=== PATIENT | male | born 1955 | race African-American/Black ===

== ENCOUNTER → 2023-06-07 11:11 | Outpatient (CLI) | payer OTHER, SELFPAY ==
--- NOTE | ~2023-06-07 | CT_ITS ---
EXAMINATION: CT chest high resolution wo ak DATE: 06/07/2023 11:28 INDICATION: Personal history of other diseases of the respiratory tract, asbestos exposure TECHNIQUE: Computed tomography (CT) of the chest was performed without intravenous contrast. The dose -length product (DLP) was 262.02 mGy-cm. Automated exposure control and iterative reconstruction tech [employer] were employed. COMPARISON: None FINDINGS: There is discoid atelectasis in the left lower lobe. The lungs are free of focal airspace o pacities. No pleural effusion or pneumothorax. No discrete findings are identified to reflect prior a sbestos exposure. Calcified left hilar and subcarinal lymph nodes are consistent with old granulomato us disease. No pathologically enlarged thoracic lymph nodes are identified. The heart size is normal. Calcified coronary artery atherosclerosis is noted. There is moderate thoracic spondylosis. Punctat e calcifications in an otherwise normal spleen likely represent healed granulomatous disease. IMPRESSION: 1. No discrete findings of prior asbestos exposure. 2. Coronary artery disease. Reviewed, dictated and finalized at location F.
== END ==
PROVIDERS: PCP Family Medicine; Visit Provider Family Medicine
DX: Z77.090 Contact with and (suspected) exposure to asbestos (principal); Z87.09 Personal history of other diseases of the respiratory system; I25.10 Atherosclerotic heart disease of native coronary artery without angina pectoris
CPT/HCPCS: 71250

== ENCOUNTER → 2023-06-09 11:41 | Outpatient (CLI) | payer MEDICARE, SELFPAY ==
--- NOTE | ~2023-06-09 | US_ITS ---
US renal BI 06/09/2023 12:00 Procedure: Realtime transabdominal ultrasound of the kidneys and bladder. Indication: Chronic kidney disease Comparison: No prior studies for comparison. Findings: Renal echotexture is normal bilaterally without hydronephrosis, contour deforming mass or r enal calculus. There is a 4.5 cm right renal cyst. The right kidney measures 9.6 cm and left kidney m easures 9.4 cm. Bladder within normal limits. Impression: 1: Right renal cyst measuring 4.5 cm. Reviewed, dictated and finalized at location B. Impression: 1: Right renal cyst measuring 4.5 cm.
== END ==
PROVIDERS: PCP Family Medicine; Visit Provider Internal Medicine Nephrology
DX: I12.9 Hypertensive chronic kidney disease with stage 1 through stage 4 chronic kidney disease, or unspecified chronic kidney disease (principal); N18.32 Chronic kidney disease, stage 3b; N28.1 Cyst of kidney, acquired
CPT/HCPCS: 76775

== ENCOUNTER 2023-09-12 14:01 | Outpatient (CLI) | payer MEDICARE, SELFPAY ==
--- NOTE | 2023-09-12 14:06 | ECHO_ITS ---
Patient Info Name: Farhan Harrison Age: 67 years : 1955 Gender: Male Ht: 73 in Wt: 210 lbs BSA: 2.23 m2 HR: 78 bpm BP: 170 / 115 mmHg Heart Rhythm: Atrial Fibrillation Technical Quality: Good Exam Date: 09/12/2023 2:14 PM Exam Location: Echo Lab Patient Status: Outpatient Admit Date: 09/12/2023 Staff Ordering Physician: Joan Guzman MD Kitchen Help Handyman: Lavonne Agarwal RDCS Attending Provider: Joan Guzman MD Referring Physician: Thomas TURPIN; Exam Type: CA echo doppler color flow Study Info Indications - Afib Complete two-dimensional, color flow and Doppler transthoracic echocardiogram is performed. Summary 1. Complete two-dimensional, color flow and Doppler transthoracic echocardiogram is performed. 2. Left ventricular chamber dimension is normal. 3. Left ventricular systolic function is normal, estimated at 65-70%. 4. There is mild concentric increased left ventricular wall thickness. 5. The left ventricular diastolic function is normal. 6. E/e' 5 is not elevated. 7. Atrial fibrillation. 8. Left atrial chamber dimension is moderately enlarged. 9. Right atrial chamber dimension is mildly enlarged. 10. There is mild aortic valve sclerosis. 11. The mitral valve has mildly calcified annulus. 12. There is trace tricuspid valve regurgitation. 13. No pulmonary hypertension, estimated pulmonary arterial systolic pressure is 22 mmHg. 14. There is trivial pericardial effusion. Left Ventricle E/e' 5 is not elevated. Atrial fibrillation. Left ventricular chamber dimension is normal. Left ventricular systolic function is normal, estimated at 65-70%. There is mild concentric increased left ventricular wall thickness. The left ventricular diastolic function is normal. Right Ventricle Right ventricular systolic function is normal and with normal TAPSE 2.2 cm. Right ventricular chamber dimension is normal. Left Atria Left atrial chamber dimension is moderately enlarged. Right Atria Right atrial chamber dimension is mildly enlarged. Aortic Valve The aortic valve is trileaflet. There is mild aortic valve sclerosis. There is no aortic valve stenosis. There is no aortic valve regurgitation. Pulmonic Valve There is no pulmonic regurgitation. Mitral Valve The mitral valve has mildly calcified annulus. There is no mitral valve stenosis. There is no mitral valve regurgitation. Tricuspid Valve There is trace tricuspid valve regurgitation. No pulmonary hypertension, estimated pulmonary arterial systolic pressure is 22 mmHg. Pericardium/Pleural There is trivial pericardial effusion. Inferior Vena Cava Normal inferior vena cava with >50% collapse upon inspiration consistent with normal right atrial pressure, 5 mmHg. Aorta The aortic root size at the sinus of Valsalva is normal. Left Ventricular Outflow Tract Name Value Normal LVOT 2D LVOT Diameter 2.0 cm LVOT Doppler LVOT Peak Gradient 2 mmHg LVOT Mean Gradient 1 mmHg LVOT VTI 13 cm LVOT VTI/AV VTI Ratio 0.9 LVOT Stroke Volume 40 ml LVOT CO
== END 2023-09-12 14:02 | disposition home or self-care (01) ==
PROVIDERS: PCP Family Medicine; Visit Provider Family Medicine
DX: I48.91 Unspecified atrial fibrillation (principal); I10 Essential (primary) hypertension
CPT/HCPCS: 93306

== ENCOUNTER 2025-01-20 00:43 | Day surgery (SDC) | payer OTHER, MEDICARE, SELFPAY ==
[2025-01-17 10:58] VITALS: BMI 30.4
[2025-01-20] VITALS (7 sets, daily range): BP systolic 139–169; BP diastolic 85–101; PULSE 41–63; RESP 14–18; TEMP 36.5; O2SAT 96–100
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
--- NOTE | 2025-01-20 08:30 | ECG_ITS ---
Test Date: 2025-01-20 08:26:38 Measurements Intervals [place] Rate: 59 P: 0 IA: 0 QRS: -10 QRSD: 108 T: -15 QT: 398 QTc: 397 Interpretive Statements ATRIAL FIBRILLATION WITH SLOW VENTRICULAR RESPONSE ABNORMAL RHYTHM ECG No previous ECG available for comparison Electronically Signed On 01-21-2025 14:19:33 CDT by Michael Lauren M.D.
[2025-01-20 08:50] LABS: Anion Gap 8 mmol/L (4-12); Blood Urea Nitrogen 15 mg/dL (9-20); Calcium 8.4 mg/dL (8.4-10.2); Carbon Dioxide 25 mmol/L (22-30); Chloride 105 mmol/L (98-107); Estimated CRCL calculation 50 ml/min; Estimated Glomerular Filt Rate 42; Glucose 96 mg/dL (65-110); Magnesium 2.1 mg/dL (1.6-2.3); Potassium 3.6 mmol/L (3.4-5.0); Sodium 138 mmol/L (137-145)
[2025-01-20] MEDS: fentaNYL CITRATE INJ (*CRX) 100 MCG/2 ML VIAL (09:35)
[2025-01-20] MEDS: MIDAZOLAM HCL (*CRX) 2 MG/2 ML VIAL (09:35)
[2025-01-20] MEDS: PROPOFOL IV EMULSION 200 MG/20 ML VIAL 20 MG IV PUSH (09:36)
--- NOTE | 2025-01-20 09:39 | WPDMODSED ---
Moderate Sedation Note-Pt Data Patient Data Allergies Allergy/AdvReac Type Severity Reaction Status Date / Time No Known Allergies Allergy Verified 01/17/25 10:55 Home Medications ?Medication ?Instructions ?Recorded ?Confirmed ?Type rivaroxaban 20 mg tablet (Xarelto) See Rx Instructions .Route 09/13/24 01/20/25 Rx .COMPLEX #90 tabs amlodipine 10 mg tablet See Rx Instructions .Route 10/25/24 01/20/25 Rx .COMPLEX #100 tabs losartan 50 mg tablet 100 mg PO DAILY 11/07/24 01/20/25 History tamsulosin 0.4 mg capsule 0.4 mg PO QHS #90 caps 11/19/24 01/20/25 Rx metoprolol tartrate 25 mg tablet 25 mg PO BID #60 tabs 12/31/24 01/20/25 Rx furosemide 20 mg tablet 20 mg PO DAILY 01/17/25 01/20/25 History hydrochlorothiazide 25 mg tablet 25 mg PO DAILY 01/17/25 01/20/25 History Sedation/Anesthesia: No previous sedation/anesthesia problems (including family history). FORMERLY [facility] Past Medical History Medical History Benign hypertension with chronic kidney disease Tobacco abuse Hyperlipidemia Benign essential HTN Surgical History Surgical History Hx of colonoscopy with polypectomy Hx of knee surgery Family History Family History Father Hypertension Mother Cirrhosis Social History Social History Social History: Smoking status: Former smoker Second hand tobacco smoke exposure: No Additional smoking assessment comments: started smoking in 2019 after stopped working. Alcohol intake: former Substance use: never Substance use type: does not use Do You Feel Safe in your Home?: Yes Lack of Transportation: No Lack of Food: Never True Current Housing: I Have Housing Concerned About Future Housing: No Difficulty Paying Gas/Electric Bills: No Difficulty Paying for Meds: No Currently Unemployed: YES Education: Decline to Answer Difficulty w/ Childcare or Family Care: No Living arrangements: alone Occupation/Education: retired Gender identity (if verbalized by the patient): Male Sexual Orientation (if Verbalized by the Patient): Straight or Heterosexual Spiritual care concerns: No Agree to blood products: Yes Mod Sed Physical Exam Physical Exam Pre Procedural Exam: Normal: Heart Rate and Variation: Heart Rhythm Hours since solid foods: 12 Hours since liquid intake: 12 Mallampati Classification: class III Internal Medicine - PN: Obj Da Vital Signs Vital Signs: Vital Signs - 24 hr 01/20/25 08:26 01/20/25 09:35 Temperature 36.5 C Pulse Rate 63 58 L Respiratory Rate 16 16 Blood Pressure 140/97 H 169/101 H Pulse Oximetry 97 100 Oxygen Delivery Room Air Nasal Cannula Oxygen Flow Rate 2 Labs 01/20/25 08:34 Labs: Laboratory Results - last 24 hr 01/20/25 08:34 Sodium 138 Potassium 3.6 Chloride 105 Carbon Dioxide 25 Anion Gap 8 BUN 15 Creatinine 1.63 H Estim Creat Clear Calc 50 Estimated GFR 42 L Glucose 96 Calcium 8.4 Magnesium 2.1 ASA Classification/Sedation ASA Classification/Sedation ASA Class: III Emergent: No Risks: Risks, benefits and alternatives explained and patient/family accepted plan for sedation. Patient re-evaluated immediately prior to sedation.
--- NOTE | 2025-01-20 09:39 | WPDCARDVER ---
Cardioversion Cardioversion Date of procedure: 01/20/25 Procedure: Synchronized cardioversion Pre-op diagnosis: Paroxysmal atrial fibrillation Post-op diagnosis: Same Indications: Paroxysmal atrial fibrillation Description of procedure: After patient received adequate sedation, synchronized cardioversion with 200 joules was performed with successful confucianism of sinus rhythm. Sedation: Versed 2 mg Fentanyl 100 mcg Propofol 20 mg Conclusion: Successful synchronized cardioversion with confucianism of sinus rhythm.
--- NOTE | 2025-01-20 10:00 | ECG_ITS ---
Test Date: 2025-01-20 09:40:00 Measurements Intervals [place] Rate: 53 P: 13 DE: 191 QRS: 72 QRSD: 91 T: 63 QT: 423 QTc: 398 Interpretive Statements SINUS BRADYCARDIA WITH OCCASIONAL SUPRAVENTRICULAR PREMATURE COMPLEXES Compared to ECG 01/20/2025 08:26:38 Atrial fibrillation no longer present Electronically Signed On 01-21-2025 14:33:20 CDT by Michael Lauren M.D.
--- NOTE | 2025-01-20 12:40 | WPDHPUPDATE1 ---
History and Physical Update Update Date/Time: 01/20/25 09:30 History and Physical has been reviewed, including an updated exam of the patient. There are NO changes in the patient's condition. Risks, benefits, and alternatives have been discussed and questions answered. Patient agrees to proceed with procedure.
== END 2025-01-20 11:00 | disposition home or self-care (01) ==
PROVIDERS: PCP Family Medicine; Visit Provider Internal Medicine
PROC: 5A2204Z Restoration of Cardiac Rhythm, Single (ICD-10-PCS; principal; 2025-01-20 10:00)
DX: I48.0 Paroxysmal atrial fibrillation (principal); Z87.891 Personal history of nicotine dependence
CPT/HCPCS: 36415; 80048; 83735; 92960; J2250; J2704; J3010; J7040

== ENCOUNTER 2025-01-30 02:17 | Day surgery (SDC) | payer OTHER, MEDICARE, SELFPAY ==
[2025-01-22 09:09] VITALS: BMI 30.4
--- NOTE | 2025-01-22 09:20 | PC.NURSE ---
Spoke with patient on 01/22/25 in regards to instructions for his colonoscopy on 01/30/25. Patient verbalizes understanding that he is to take his last dose of blood thinner on 01/27/25 for procedure.
--- OUTSIDE RECORDS SUMMARY | 2025-01-30 02:27 | XMS_ITS | Clinical Summary ---
Author Organization [facility] Address [address] [place] [address] Phone Care Team Providers Care Automotive Instructor Name Role Phone Unavailable Primary Care Provider [...] (1 - 1-dose 75+ series) 12/05/2031 Insurance [employer] CHOICE
[2025-01-30 09:18] VITALS: BP 147/88; PULSE 41; RESP 18; TEMP 36.1; O2SAT 99
--- NOTE | 2025-01-30 09:22 | P.PNAN_ITS ---
Anes - Initial Pre Proc Eval Procedure: Operation Date: 01/30/25 10:00 Proposed Procedures p Screening Colonoscopy - Kyle Lehman MD Date/Time: 01/30/25 09:22 Surgeon: Kyle Lemhan MD Pre Op Diagnosis: Encounter for screening for malignant neoplasm of Patient Data Age: 69 Gender: M Height: 1.85 m Weight: 104.5 kg Allergies Allergy/AdvReac Type Severity Reaction Status Date / Time No Known Allergies Allergy Verified 01/30/25 09:17 Home Medications ?Medication ?Instructions ?Recorded ?Confirmed ?Type rivaroxaban 20 mg tablet (Xarelto) See Rx Instructions .Route 09/13/24 01/30/25 Rx .COMPLEX #90 tabs amlodipine 10 mg tablet See Rx Instructions .Route 10/25/24 01/22/25 Rx .COMPLEX #100 tabs losartan 50 mg tablet 100 mg PO DAILY 11/07/24 01/22/25 History tamsulosin 0.4 mg capsule 0.4 mg PO QHS #90 caps 11/19/24 01/22/25 Rx metoprolol tartrate 25 mg tablet 25 mg PO BID #60 tabs 12/31/24 01/30/25 Rx furosemide 20 mg tablet 20 mg PO DAILY 01/17/25 01/22/25 History hydrochlorothiazide 25 mg tablet 25 mg PO DAILY 01/17/25 01/22/25 History Patient hx anesthesia problems: none Family hx anesthesia problems: none Results Review: All pre-operative results and documents have been reviewed as part of the pre- operative evaluation. [facility]LY [facility] Past Medical History Medical History (Updated 01/29/25 @ 14:27 by Kirt Harrison DO) CHF (congestive heart failure) EF 65-70% Coronary artery calcification seen on CAT scan CKD (chronic kidney disease), stage III Atrial fibrillation, chronic Benign hypertension with chronic kidney disease Tobacco abuse Hyperlipidemia Benign essential HTN Surgical History Surgical History Hx of colonoscopy with polypectomy Hx of knee surgery Family History Family History Father Hypertension Mother Cirrhosis Social History Social History Social History: Smoking status: Former smoker Second hand tobacco smoke exposure: No Additional smoking assessment comments: started smoking in 2019 after stopped working. Alcohol intake: former Substance use: never Substance use type: does not use Do You Feel Safe in your Home?: Yes Lack of Transportation: No Lack of Food: Never True Current Housing: I Have Housing Concerned About Future Housing: No Difficulty Paying Gas/Electric Bills: No Difficulty Paying for Meds: No Currently Unemployed: YES Education: Decline to Answer Difficulty w/ Childcare or Family Care: No Living arrangements: alone Occupation/Education: retired Gender identity (if verbalized by the patient): Male Sexual Orientation (if Verbalized by the Patient): Straight or Heterosexual Spiritual care concerns: No Agree to blood products: Yes Anes - Eval Final PreProcedure Day of Procedure 01/30/25 09:22 Patient weight: obese Heart: regular rate and rhythm Lungs: clear to auscultation Airway: Mallampati scale class II Neurological: alert and oriented Last oral intake: >/= 8 hours ASA classification: IV Emergent: no Anesthetic plan: proceed Anesthesia type and monitoring: general GIVS and standard monitoring Results Review: All pre-operative results and documents have been reviewed as part of the pre- operative evaluation. Informed Consent: The patient's anesthetic plan and its attendant risks and benefits were discussed with the patient/family/POA. Questions were solicited and answers provided to the satisfaction of the patient/family/POA.
--- NOTE | 2025-01-30 09:32 | PM.HPGS ---
History of Present Illness History of Present Illness Consent: Risks, benefits, and alternatives have been discussed and questions answered. Patient agrees to proceed with procedure. Chief complaint: Encounter for screening for malignant neoplasm of Narrative: Farhan Harrison is a 69 year old male with colon polyp 5 years ago Review of Systems Review of Systems: All systems reviewed & are unremarkable except as noted in HPI and below PMFSH Past Medical History Medical History (Updated 01/30/25 @ 09:33 by Kyle Lehman MD) Colon polyp CHF (congestive heart failure) EF 65-70% Coronary artery calcification seen on CAT scan CKD (chronic kidney disease), stage III Atrial fibrillation, chronic Benign hypertension with chronic kidney disease Tobacco abuse Hyperlipidemia Benign essential HTN Surgical History Surgical History Hx of colonoscopy with polypectomy Hx of knee surgery Family History Family History Father Hypertension Mother Cirrhosis Social History Social History Social History: Smoking status: Former smoker Second hand tobacco smoke exposure: No Additional smoking assessment comments: started smoking in 2019 after stopped working. Alcohol intake: former Substance use: never Substance use type: does not use Do You Feel Safe in your Home?: Yes Lack of Transportation: No Lack of Food: Never True Current Housing: I Have Housing Concerned About Future Housing: No Difficulty Paying Gas/Electric Bills: No Difficulty Paying for Meds: No Currently Unemployed: YES Education: Decline to Answer Difficulty w/ Childcare or Family Care: No Living arrangements: alone Occupation/Education: retired Gender identity (if verbalized by the patient): Male Sexual Orientation (if Verbalized by the Patient): Straight or Heterosexual Spiritual care concerns: No Agree to blood products: Yes Meds Home Medications and Allergies Home Medications ?Medication ?Instructions ?Recorded ?Confirmed ?Type rivaroxaban 20 mg tablet (Xarelto) See Rx Instructions .Route 09/13/24 01/30/25 Rx .COMPLEX #90 tabs amlodipine 10 mg tablet See Rx Instructions .Route 10/25/24 01/22/25 Rx .COMPLEX #100 tabs losartan 50 mg tablet 100 mg PO DAILY 11/07/24 01/22/25 History tamsulosin 0.4 mg capsule 0.4 mg PO QHS #90 caps 11/19/24 01/22/25 Rx metoprolol tartrate 25 mg tablet 25 mg PO BID #60 tabs 12/31/24 01/30/25 Rx furosemide 20 mg tablet 20 mg PO DAILY 01/17/25 01/22/25 History hydrochlorothiazide 25 mg tablet 25 mg PO DAILY 01/17/25 01/22/25 History Allergies Allergy/AdvReac Type Severity Reaction Status Date / Time No Known Allergies Allergy Verified 01/30/25 09:17 Vital Signs Vital Signs - 24 hr 01/30/25 09:18 Temperature 97 F L Pulse Rate 41 L Respiratory Rate 18 Blood Pressure 147/88 H Pulse Oximetry 99 Oxygen Delivery Room Air Exam Const: General: comfortable and no acute distress HENMT: Face/Nose/Sinus: Normal nares present Eyes: General: appearance normal, both eyes and all related structures Neck: Neck: no JVD Resp: Auscultation: clear to auscultation bilaterally Cardio: Rate: regular rate Rhythm: regular rhythm GI: Inspection: non-distended GI Palp: Yes Soft to palpation Skin: General skin exam: normal color Neuro: Speech: normal speech Extrem: General: normal to inspection Psych: Mental Status: mental status grossly normal Assessment and Plan Assessment and plan (1) Colon polyp: Code(s): K63.5 - Polyp of colon Status: Acute Assessment and Plan: colonoscopy
[2025-01-30] MEDS: LACTATED RINGERS 1,000 ML 150 ML IV CONT (09:34)
[2025-01-30 10:43] VITALS: BP 113/76; PULSE 65; RESP 18; O2SAT 98
[2025-01-30 10:53] VITALS: BP 101/72; PULSE 60; RESP 18; O2SAT 97
[2025-01-30 10:59] VITALS: BP 110/65; PULSE 60; RESP 18; O2SAT 97
== END 2025-01-30 11:11 | disposition home or self-care (01) ==
PROVIDERS: PCP Family Medicine; Referring Provider Physician Assistant Medical; Visit Provider Internal Medicine Gastroenterology
PROC: 0DJD8ZZ Inspection of Lower Intestinal Tract, Via Natural or Artificial Opening Endoscopic (ICD-10-PCS; CPT 45378; principal; 2025-01-30 10:00)
DX: Z12.11 Encounter for screening for malignant neoplasm of colon (principal); K64.8 Other hemorrhoids; E78.5 Hyperlipidemia, unspecified; I12.9 Hypertensive chronic kidney disease with stage 1 through stage 4 chronic kidney disease, or unspecified chronic kidney disease; N18.30 Chronic kidney disease, stage 3 unspecified; I48.20 Chronic atrial fibrillation, unspecified; I11.0 Hypertensive heart disease with heart failure; I50.9 Heart failure, unspecified; E66.9 Obesity, unspecified; Z68.29 Body mass index [BMI] 29.0-29.9, adult; Z79.01 Long term (current) use of anticoagulants; Z98.890 Other specified postprocedural states; Z86.0100 Personal history of colon polyps, unspecified; Z87.891 Personal history of nicotine dependence
CPT/HCPCS: 45378; J2003; J2704; J7120

== ENCOUNTER 2025-03-04 08:54 | Outpatient (CLI) | payer OTHER, MEDICARE, SELFPAY ==
[2025-03-25 09:45] VITALS: BMI 28.8
--- NOTE | 2025-03-25 09:45 | P.SLEEP_ITS ---
Sleep Study - Home Unattended Date of Study: 03/04/25 Ordering Provider: Jackson King APRN Interpreting Provider: Jessica Medina DO [facility] Sleep Study Type: Watch PAT Height: 1.85 m Weight: 98.883 kg Body Mass Index: 28.8 Neck Circumference (inches): 17 [place]: 0 Reason for Sleep Study Persistent atrial fibrillation Sleep History The patient is a 68-year-old male who had a sleep study ordered by the pulmonary group for evaluation of sleep apnea. The patient admits to having difficulty falling and staying asleep. He denies snoring loudly. He denies interruptions in breathing while asleep. He denies choking or gasping at night. He denies having trouble breathing on his back. He denies morning headaches. He denies having a dry or sore mouth/throat in the morning. He denies nocturnal heartburn. He urinates twice throughout the night. He does have difficulty returning to sleep if he wakes up throughout the night. He denies any hypnotic or sedative use. He denies feeling anxious about sleep. He denies feeling tired or sleepy during the day. He denies feeling tired in the morning. He denies having the urge to fall asleep during the day. He denies feeling drowsy while driving. He denies sleep paralysis, cataplexy, and hypnagogic/hypnopompic hallucinations. He denies clenching or grinding his teeth. He denies kicking or jerking his legs excessively. He denies having a restless feeling in his legs. He goes to bed at 10 p.m. on workdays and at 9 p.m. on his days off. It takes him 1 hour to fall asleep. He gets 5 hours of sleep on workdays and 6 hours on his days off. His sleep is a little more restorative on days off. He denies taking any planned naps. He denies dream enactment behavior. He denies sleepwalking. He denies consuming any caffeinated beverages during the day. He denies tobacco, alcohol, and recreational drug use. [facility] Past Medical History Medical History Colon polyp CHF (congestive heart failure) EF 65-70% Coronary artery calcification seen on CAT scan CKD (chronic kidney disease), stage III Atrial fibrillation, chronic Benign hypertension with chronic kidney disease Tobacco abuse Hyperlipidemia Benign essential HTN Surgical History Surgical History Hx of colonoscopy with polypectomy Hx of knee surgery Family History Family History Father Hypertension Mother Cirrhosis Social History Social History Social History: Smoking status: Former smoker Second hand tobacco smoke exposure: No Additional smoking assessment comments: started smoking in 2019 after stopped working. Alcohol intake: former Substance use: never Substance use type: does not use Do You Feel Safe in your Home?: Yes Lack of Transportation: No Lack of Food: Never True Current Housing: I Have Housing Concerned About Future Housing: No Difficulty Paying Gas/Electric Bills: No Difficulty Paying for Meds: No Currently Unemployed: YES Education: Decline to Answer Difficulty w/ Childcare or Family Care: No Living arrangements: alone Occupation/Education: retired Gender identity (if verbalized by the patient): Male Sexual Orientation (if Verbalized by the Patient): Straight or Heterosexual Spiritual care concerns: No Agree to blood products: Yes Medications Home Medications ?Medication ?Instructions ?Recorded ?Confirmed ?Type rivaroxaban 20 mg tablet (Xarelto) See Rx Instructions .Route 09/13/24 02/04/25 Rx .COMPLEX #90 tabs amlodipine 10 mg tablet See Rx Instructions .Route 10/25/24 02/04/25 Rx .COMPLEX #100 tabs tamsulosin 0.4 mg capsule 0.4 mg PO QHS #90 caps 11/19/24 02/04/25 Rx furosemide 20 mg tablet 20 mg PO DAILY 01/17/25 02/04/25 History hydralazine 10 mg tablet 10 mg PO BID #60 tabs 02/04/25 02/04/25 Rx losartan 100 1 tablet PO DAILY #30 tabs 02/04/25 02/04/25 Rx mg-hydrochlorothiazide 25 mg tablet metoprolol succinate 25 mg 12.5 mg (1/2 x 25 mg) PO DAILY #30 05/27/25 05/27/25 Rx tablet,extended release 24 hr tabs Sleep Procedure The sleep study was completed using [employer] a technically adequate device with seven channels: peripheral arterial tone, actigraphy, body position, snore, respiratory movement, pulse oximetry, sleep staging, and heart rate. Prior to using the device, the patient received verbal and written instructions for its application and was provided with the help desk phone number for additional telephonic instruction with 24-hour availability of qualified personnel to answer questions. The study was scored using CMS guidelines. Sleep Architecture The total recording time is 8 hrs, 4 min. The total sleep time is 6 hrs, 57 min. Sleep latency is 13 minutes. REM latency is 147 minutes. The patient had 16 episodes of waking. Sleep architecture shows 25.1% deep sleep, 57.3% light sleep, and (as % Total Sleep Time) showed NREM (Light 57.3%; Deep 25.1%), and a 17.6% stage REM. The patient spent 31.7% of total sleep time in the supine position. Sleep efficiency was 86.16. Respiratory Analysis The overall AHI (pAHI 4%:) is 20.0. The overall AHI (pAHI 3%:) is 38.3. The central AHI is 9.5. The AHI was 34.3 in NREM and 54.7 in REM sleep. The AHI was 67.0 in Supine and 25.8 in Non-supine sleep. Percent of Stephan Bansal respirations is 23.8. Oximetry Data The oxygen desaturation index (KYLEIGH 4%:) is 21.9. The mean saturation is 94%, and the lowest saturation is 78%. Time spent with saturation < 88% is 0.2 minutes. Snoring Profile Snoring average intensity is 40 dB. The patient snored above 45 decibels for 11.9 minutes, 2.9% of sleep time. Cardiac Profile The average pulse rate is 68 beats per minutes. The lowest pulse rate is 40 bpm. The highest pulse rate reported is 101 bpm. Suspected Afib total duration is 6:34:43, (h:m:sec). The longest Afibevent duration is 1:30:05. Premature beats occur 4.6 per minute. Assessment and Plan Assessment and Plan (1) PATRICK (obstructive sleep apnea): Code(s): G47.33 - Obstructive sleep apnea (adult) (pediatric) Status: Acute Assessment and Plan: The patient had an overall AHI of 20.0 with desaturation down to 78%. The patient had a central apnea index of 9.5. This is consistent with moderate sle ep apnea. Due to the patient's elevated central apnea index and presence of Stephan-Bansal respirations, AutoPAP is not advise. I recommend that the patient have a CPAP titration study with the use of a hypnotic to ensure we obtain enough sleep data find an optimal pressure. If the patient has not had an echocardiogram done within the past 6 months, I recommend that he have one to evaluate his ejection fraction due to the elevated central apnea index. (2) SALES OFFICE ADMINISTRATOR (Stephan Bansal respiration): Code(s): R06.3 - Periodic breathing Status: Acute Assessment and Plan: The patient had Stephan-Bansal respirations present for 23.8% of the total recording time. Data The data obtained during this sleep study is adequate for interpretation. Certification This sleep study has been reviewed by a board certified sleep medicine physician.
== END 2025-03-05 09:38 | disposition home or self-care (01) ==
LOC: ANHCSM 08:55
PROVIDERS: PCP Family Medicine; Visit Provider Nurse Practitioner Family
DX: G47.33 Obstructive sleep apnea (adult) (pediatric) (principal)
CPT/HCPCS: 95800

== ENCOUNTER 2025-05-01 13:08 | Outpatient (CLI) | payer OTHER, MEDICARE, SELFPAY ==
--- OUTSIDE RECORDS SUMMARY | 2025-05-01 13:15 | XMS_ITS | Clinical Summary ---
Author Organization [facility] Address [address] [place] [address] Phone Care Team Providers [employer] Attendant Name Role Phone Unavailable Primary Care Provider [...] 11:07 AM CDT Height 185.4 cm (6' 1) 06/01/2017 11:07 AM CDT Body Mass Index [...] (1 of 2) 2006 INFLUENZA VACCINE (#1) 2025 RSV VACCINE (60+ or ) (1 - 1-dose 75+ series) 12/05/2031 Insurance Conduit CHOICE
--- NOTE | 2025-05-01 13:38 | ECHO_ITS ---
Patient Info Name: Farhan Harrison Age: 69 years : 1955 Gender: Male Ht: 74 in Wt: 224 lbs BSA: 2.32 m2 HR: 63 bpm BP: 120 / 91 mmHg Technical Quality: Good Exam Date: 05/01/2025 1:50 PM Patient Status: O Admit Date: 05/01/2025 Exam Type: CA echo doppler color flow Complete two-dimensional, color flow and Doppler transthoracic echocardiogram is performed. Business Analytics Intern: Jade Salamanca Attending Provider: Jackson King Summary 1. Complete two-dimensional, color flow and Doppler transthoracic echocardiogram is performed. 2. Left ventricular chamber dimension is normal. 3. Left ventricular systolic function is normal, estimated at 60-65. 4. There is moderate concentric increased left ventricular wall thickness. 5. The left ventricular diastolic function is normal. 6. E/e' 4 is not elevated. 7. Left atrial chamber dimension is moderately enlarged. 8. Mild left to right atrial shunt by color doppler suggestive of PFO. 9. There is trace mitral valve regurgitation. 10. There is mild tricuspid valve regurgitation. 11. No pulmonary hypertension, estimated pulmonary arterial systolic pressure is 24 mmHg. Left Ventricle E/e' 4 is not elevated. Left ventricular chamber dimension is normal. Left ventricular systolic function is normal, estimated at 60-65. There is moderate concentric increased left ventricular wall thickness. The left ventricular diastolic function is normal. Right Ventricle Right ventricular chamber dimension is normal. Right ventricular systolic function is normal. Left Atria Left atrial chamber dimension is moderately enlarged. Right Atria Right atrial chamber dimension is normal. Atrial Septum Suspected patent foramen ovale visualized by 2D and color flow imaging. Mild left to right atrial shunt by color doppler suggestive of PFO. Aortic Valve The aortic valve is trileaflet. There is no aortic valve stenosis. There is no aortic valve regurgitation. Pulmonic Valve There is no pulmonic regurgitation. Mitral Valve There is no mitral valve stenosis. There is trace mitral valve regurgitation. Tricuspid Valve There is mild tricuspid valve regurgitation. No pulmonary hypertension, estimated pulmonary arterial systolic pressure is 24 mmHg. Pericardium/Pleural There is no pericardial effusion. Inferior Vena Cava Normal inferior vena cava with >50% collapse upon inspiration consistent with normal right atrial pressure, 5 mmHg. Aorta The aortic root size at the sinus of Valsalva is normal. Left Ventricular Outflow Tract Name Value Normal LVOT 2D LVOT Diameter 2.0 cm LVOT Doppler LVOT Peak Velocity 67 cm/s LVOT Peak Gradient 2 mmHg LVOT Mean Gradient 1 mmHg LVOT VTI 13 cm LVOT VTI/AV VTI Ratio 0.7 LVOT Stroke Volume 43 ml LVOT CO 9.0 l/min LVOT CI 3.9 l/min/m2 Pulmonic Valve Name Value Normal PV Doppler PV Peak Velocity 83 cm/s PV Peak Gradient 3 mmHg Mitral Valve Name Value Normal MV Diastolic Function MV E Peak Velocity 52 cm/s MV A Peak Velocity 4 cm/s MV E/A 12.9 MV Decel Time (PW) 195 ms MV Annular TDI MV E/e' (Septal) 5.6 MV E/e' (Lateral) 4.3 MV E/e' (Average) 5.0 Tricuspid Valve Name Value Normal TV Regurgitation Doppler TR Peak Velocity 216 cm/s TR Peak Gradient 19 mmHg Estimated PAP/RSVP RA Pressure 5 mmHg <=5 PA Systolic Pressure 24 mmHg <36 RV Systolic Pressure 24 mmHg <36 TV Annular TDI TV Lateral Makenzie s' Velocity 11.1 cm/s >=9.5 Aorta Name Value Normal Ascending Aorta Ao Root Diameter (MM) 3.6 cm Ao Root Diam Index (MM) 1.6 cm/m2 Aortic Valve Name Value Normal AV Doppler AV Peak Velocity 96 cm/s AV Peak Gradient 4 mmHg AV Mean Gradient 2 mmHg AV VTI 18 cm AV Area (Cont Eq VTI) 2.3 cm2 >=3.0 AV Area (Cont Eq Mateo) 2.3 cm2 AV DI (Mateo) 0.69 AV Regurgitation 2D LVOT Area 3.3 cm2 Ventricles Name Value Normal LV Dimensions 2D/MM IVS Diastolic Thickness (2D) 1.2 cm 0.6-1.0 LVID Diastole (2D) 3.7 cm 4.2-5.8 LVIW Diastolic Thickness (2D) 1.2 cm 0.6-1.0 LVID Systole (2D) 2.3 cm 2.5-4.0 LVOT Diameter 2.0 cm LV Mass (2D Cubed) 145.48 g 88.00-224.00 LV Mass Index (2D Cubed) 63 g/m2 49-115 Relative Wall Thickness (2D) 0.65 <=0.42 LV Fractional Shortening/Ejection Fraction 2D/MM LV Fractional Shortening (2D) 39 % 25-43 LV EF (2D Teichdevinz) 70 % LV Diastolic Volume (4C MOD) 78 ml LV EF (4C MOD) 61 % LV Diastolic Volume (2C MOD) 87 ml LV EF (2C MOD) 66 % LV Diastolic Volume (BP MOD) 85 ml 62-150 LV Diastolic Volume Index (BP MOD) 37 ml/m2 34-74 LV Systolic Volume (BP MOD) 30 ml 21-61 LV Systolic Volume Index (BP MOD) 13 ml/m2 11-31 LV EF (BP MOD) 65 % 52-72 LV Diastolic Length (4C) 7.0 cm LV Systolic Length (4C) 6.1 cm LV Stroke Volume (4C MOD) 48 ml RV Dimensions 2D/MM RVID Diastole (2D) 4.4 cm 2.1-3.5 Atria Name Value Normal LA Dimensions LA Dimension (MM) 3.9 cm 3.0-4.0 LA Volume (4C A-L) 59 ml LA Volume (BP A-L) 77 ml RA Dimensions RA Systolic Major [place] Length (4C) 5.6 cm 2.1-2.7 RA Area (4C) 23.3 cm2 <=18.0 Report Signatures
== END 2025-05-01 13:09 | disposition home or self-care (01) ==
LOC: ANHCARD 13:08
PROVIDERS: PCP Family Medicine; Visit Provider Nurse Practitioner Family
DX: G47.33 Obstructive sleep apnea (adult) (pediatric) (principal); I36.1 Nonrheumatic tricuspid (valve) insufficiency
CPT/HCPCS: 93306